=== PATIENT | female | born 2005 | race Caucasian/White ===

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

== ENCOUNTER 2023-05-02 14:57 | Emergency (ER) | payer OTHER ==
[2023-05-02] MEDS ORDERED: predniSONE 20 MG TAB ONE (15:15)
== END 2023-05-02 15:27 | disposition home or self-care (01) ==
LOC: ERS 14:57
DX: R21 Rash and other nonspecific skin eruption (principal); F17.210 Nicotine dependence, cigarettes, uncomplicated
CPT/HCPCS: 99282; J7512